=== PATIENT | female | born 1965 | race Caucasian/White ===

== ENCOUNTER 2017-07-19 09:44 | Emergency (ER) | payer OTHER ==
[2017-07-19] MEDS ORDERED: Acetaminophen TAB* 325 MG PO ONE (10:40)
[2017-07-19] MEDS ORDERED: Lisinopril TAB* 10 MG PO ONE (10:45)
[2017-07-19 11:05] LABS: Hematocrit 39 % (35-47); Hemoglobin 12.6 g/dl (12.0-16.0); Mean Corpuscular HGB Conc 33 g/dl (31-36); Mean Corpuscular Hemoglobin 28 pg (27-31); Mean Corpuscular Volume 86 fL (80-97); Mean Platelet Volume 7 um3 (7.4-10.4); Red Cell Distribution Width 15 % (10.5-15); White Blood Count 9.8 10^3/ul (3.5-10.8)
--- NOTE | 2017-07-19 11:09 | RAD ---
Indication: The headache post fall 2 weeks ago. Hypertension. Comparison: November 10, 2014 CT. Technique: Upright AP 1050 hours Report: Clear lungs and pleural spaces. Negative for pneumothorax. Upper normal heart size accounting for portable AP technique. Unremarkable central pulmonary vasculature and mediastinal contours. Unremarkable osseous structures and soft tissue contours. IMPRESSION: No evidence for acute intrathoracic disease.
[2017-07-19 11:22] LABS: Albumin 4.3 g/dL (3.2-5.2); BUN/Creatinine Ratio 12.1 (8-20); C Reactive Protein 6.73 mg/L (< 5.00); Calcium 9.8 mg/dL (8.6-10.3); EGFR African American 121.4 (>60); EGFR Non-African American 94.4 (>60); Potassium 3.5 mmol/L (3.5-5.0); Total Bilirubin 0.3 mg/dL (0.2-1.0); Total Protein 7.3 g/dL (6.4-8.9)
[2017-07-19 11:24] LABS: Troponin I 0.01 ng/mL (<0.04)
--- NOTE | 2017-07-19 11:36 | RAD ---
Indication: Headache after fall. CT of the brain was performed without IV contrast. Ventricular structures are midline. No midline shift is noted. The extraction spaces are unremarkable. There is no evidence of intracranial mass or hemorrhage. No other high or low density lesions are identified. Mastoid air cells and paranasal sinuses are otherwise unremarkable. IMPRESSION: No intracranial mass or hemorrhage is noted.
--- NOTE | 2017-07-19 11:49 | RAD ---
Indication: Fall on tailbone. 2 views of the sacrum and coccyx angulated tip of the coccyx which appears to be unchanged from previous exam of April 22, 2015. A displaced coccyx is not excluded. Sacral foramina appear patent. IMPRESSION: The tip of the coccyx appears to be angulated and slightly displaced anteriorly. Fracture or dislocation is not excluded. This is significantly changed since April 12, 2015 CT scan.
[2017-07-19 12:38] VITALS: BP 160/90
--- NOTE | 2017-07-21 02:19 | ED ---
Saba Suazo Nilda, scribed for Annmarie Anguiano MD on 07/19/17 at 1023 . Dizziness - HPI Summary HPI Summary: This patient is a 52 year old F presenting to [facility] accompanied by with a chief complaint of constant severe headache since 07/14/17 that has been worsening progressively. 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 Pt states a child ran in front of her and ran into her causing her to lose her balance and fall. She states that she landed on her coccyx, hit the back of her head (posterior occiput) and had an abrasion on her right elbow. Pt states that she saw stars after the fall and applied ice for relief. The patient rates the pain 7/10 in severity. Pt states she had headache and coccyx pain after the injury, but that all of her symptoms worsened on 07/14/17. Pt denies new injury. Symptoms aggravated by change in head position. Symptoms alleviated by dark rooms and rest. Pt notes that Tylenol does not relieve headache. Patient reports dizziness , photophobia, coccyx pain, shakiness, chest pain, palpitations, confusion, sleep disturbance, nausea, and near syncope secondary to headache. Pt states shes currently on 25 mg of Metroprolol Tartrate BID but only takes it once per day due to fear of side effects. At home, pt states her BP is normally 140/70 when controlled. Lately, home BP has been reading 168/95 with 77 bpm. In ED, BP is currently 170/86. Pt is seeing PCP 08/03/17 to discuss blood pressure medication. She is also on Protonix and Ambien (currently ineffective). NKDA though Demerol causes nausea. Multiple meds with adverse side effects. PMHx includes hypertension, Crohn's disease, Subcutaneous sebaceous cyst, and Adhesive Capsulitis left shoulder. PSHx multiple left shoulder surgeries. 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 - Allergies/Home Medications Allergies/Adverse Reactions: Allergies Allergy/AdvReac Type Severity Reaction Status Date / Time Prednisone Allergy Severe SEVERE Verified 11/07/14 11:36 PALPITATIONS Tramadol AdvReac Intermediate Nausea And Verified 11/07/14 11:36 Vomiting Gabapentin AdvReac Nausea Verified 11/07/14 11:36 ADHESIVE TAPE AND BANDAID, Allergy Intermediate Rash Uncoded 11/07/14 11:36 ENVIRONMENTAL/SEASONAL Allergy SNEEZE, Uncoded 11/07/14 11:36 HAYFEVER CONGESTION Opiates AdvReac Mild Nausea And Uncoded 11/07/14 11:36 Vomiting, MORE OF A SENSITIVITY,CAN TAKE PERCOCET PMH/Surg Hx/FS Hx/Imm Hx Previously Healthy: No Endocrine/Hematology History: Reports: Hx Anemia - R/T HEAVY PERIODS AND CROHN'S Denies: Hx Diabetes Cardiovascular History: Reports: Hx Hypertension - ON MEDS Denies: Hx Congestive Heart Failure, Hx Pacemaker/ICD, Other Cardiovascular Problems/Disorders Respiratory History: Reports: Hx Chronic Bronchitis, Hx Pneumonia, Hx Seasonal Allergies Denies: Hx Asthma, Other Respiratory Problems/Disorders GI History: Reports: Hx Crohn's Disease, Hx Gastroesophageal Reflux Disease - ACID REFLUX - CONTROL WITH MEDS, Hx Hiatal Hernia, Hx Ulcer - BLEEDING ULCERS History: Reports: Hx Kidney Stones - PASSED - 1998, Other Problems/ Disorders - HX OF UTI Denies: Hx Dialysis, Hx Renal Disease Musculoskeletal History: Reports: Other Musculoskeletal History - LEFT SHOULDER PAIN FROM INJURY; adhesive capsulitis Sensory History: Reports: Hx Contacts or Glasses - CONTACTS, WILL WEAR GLASSES DAY OF SURGERY Denies: Hx Hearing Aid Opthamlomology History: Reports: Hx Contacts or Glasses - CONTACTS, WILL WEAR GLASSES DAY OF SURGERY Neurological History: Reports: Hx Migraine - OCCASIONAL Denies: Other Neuro Impairments/Disorders Psychiatric History: Reports: Hx Anxiety - ON MEDS, Hx Depression Denies: Hx Panic Disorder - Cancer History Cancer Type, Location and Year: BASAL CELL FROM LT SH AND RT VOODOO - Surgical History Surgery Procedure, Year, and Place: 05/11/13, LEFT SHOULDER , [facility] [place] 11/2013 Left Shoulder Surgery Hx Anesthesia Reactions: No Infectious Disease History: No Infectious Disease History: Reports: Hx Shingles Denies: Traveled Outside the [place] in Last 30 Days - Family History Known Family History: Positive: Cardiac Disease - [place], Other - CVA - Social History Occupation: Employed Part-time - after school program, injury to head and coccyx occurred at work , Disabled Lives: With Family Alcohol Use: Rare Substance Use Type: Reports: None Smoking Status (MU): Never Smoked Tobacco Have You Smoked in the Last Year: No Review of Systems Positive: Other - mechanical fall at work Positive: Photophobia Positive: Palpitations, Chest Pain Positive: Nausea Positive: Other - tailbone pain, chronic left shoulder pain (due to Adhesive Capsulitis) Neurological: Other - dizziness, shakiness, confusion, sleep distubance Positive: Headache, Syncope - near Psychological: Normal All Other Systems Reviewed And Are Negative: Yes Physical Exam Triage Information Reviewed: Yes Vital Signs On Initial Exam: Initial Vitals Temp Pulse Resp BP Pulse Ox 98.6 F 75 18 173/96 98 07/19/17 09:47 07/19/17 09:47 07/19/17 09:47 07/19/17 09:47 07/19/17 09:47 Vital Signs Reviewed: Yes Appearance: Positive: Well-Appearing, Well-Nourished, Pain Distress Skin: Positive: Warm, Skin Color Reflects Adequate Perfusion, Other - no ecchymosis Head/Face: Positive: Normal Head/Face Inspection, Cephalohematoma - post occiput , Other - "bia" left occiput (chronic per pt), probable sebaceous cyst Eyes: Positive: EOMI, CASSIDY, Conjunctiva Clear ENT: Positive: Normal ENT inspection, TMs normal Neck: Positive: Supple, Nontender, No Lymphadenopathy Respiratory/Lung Sounds: Positive: Clear to Auscultation, Breath Sounds Present , Other - negative respiratory distress Cardiovascular: Positive: Other - pulses normal, brisk capillary refill, S1, S2. Negative: Murmur Abdomen Description: Positive: Nontender, No Organomegaly, Soft. Negative: Bruit, CVA Tenderness (R), CVA Tenderness (L), Distended, Guarding, Hernia @, Hepatomegaly, McBurney's Point Tenderness, Peritoneal Signs, Pulsatile Mass, Splenomegaly Bowel Sounds: Positive: Present Musculoskeletal: Positive: Other - Pulses intact, no calf tenderness, tender at coccyx w.o bruising Neurological: Positive: Sensory/Motor Intact, Alert, Oriented to Person Place, Time, CN Intact II-III, Reflexes Intact - 2+ and symmetric, Heel to Toe - normal , Facial Symmetry, Speech Normal, Other - muscle tone normal, CN II-XII intact, motor function 5/5, sensations intact, Gait WNL, heel to azar normal. Negative : Facial Droop Psychiatric: Positive: Normal - Ava Coma Scale Best Eye Response: 4 - Spontaneous Best Motor Response: 6 - Obeys Commands Best Verbal Response: 5 - Oriented Diagnostics - Vital Signs Vital Signs Temp Pulse Resp BP Pulse Ox 07/19/17 09:47 98.6 F 75 18 173/96 98 - Laboratory Lab Results: Lab Results 07/19/17 07/19/17 07/19/17 Range/Units 10:55 10:55 10:55 WBC 9.8 (3.5-10.8) 10^3/ul RBC 4.50 (4.0-5.4) 10^6/ul Hgb 12.6 (12.0-16.0) g/dl Hct 39 (35-47) % MCV 86 (80-97) fL MCH 28 (27-31) pg MCHC 33 (31-36) g/dl RDW 15 (10.5-15) % Plt Count 429 (150-450) 10^3/ul MPV 7 L (7.4-10.4) um3 Neut % (Auto) 81.1 (38-83) % Lymph % (Auto) 12.8 L (25-47) % Gaines % (Auto) 4.8 (1-9) % Eos % (Auto) 0.9 (0-6) % Baso % (Auto) 0.4 (0-2) % Absolute Neuts (auto) 7.9 H (1.5-7.7) 10^3/ul Absolute Lymphs (auto) 1.3 (1.0-4.8) 10^3/ul Absolute Monos (auto) 0.5 (0-0.8) 10^3/ul Absolute Eos (auto) 0.1 (0-0.6) 10^3/ul Absolute Basos (auto) 0 (0-0.2) 10^3/ul Absolute Nucleated RBC 0 10^3/ul Nucleated RBC % 0 INR (Anticoag Therapy) 1.00 (0.89-1.11) Sodium 139 (133-145) mmol/L Potassium 3.5 (3.5-5.0) mmol/L Chloride 105 (101-111) mmol/L Carbon Dioxide 28 (22-32) mmol/L Anion Gap 6 (2-11) mmol/L BUN 8 (6-24) mg/dL Creatinine 0.66 (0.51-0.95) mg/dL Est GFR ( Amer) 121.4 (>60) Est GFR (Non-Af Amer) 94.4 (>60) BUN/Creatinine Ratio 12.1 (8-20) Glucose 123 H (70-100) mg/dL Lactic Acid (0.5-2.0) mmol/L Calcium 9.8 (8.6-10.3) mg/dL Total Bilirubin 0.30 (0.2-1.0) mg/dL AST 12 L (13-39) U/L ALT 9 (7-52) U/L Alkaline Phosphatase 84 (34-104) U/L Total Creatine Kinase 59 (10-223) U/L CK-MB (CK-2) 1.3 (0.6-6.3) ng/mL Troponin I 0.01 (<0.04) ng/mL C-Reactive Protein 6.73 H (< 5.00) mg/L Total Protein 7.3 (6.4-8.9) g/dL Albumin 4.3 (3.2-5.2) g/dL Globulin 3.0 (2-4) g/dL Albumin/Globulin Ratio 1.4 (1-3) 07/19/17 Range/Units 10:55 WBC (3.5-10.8) 10^3/ul RBC (4.0-5.4) 10^6/ul Hgb (12.0-16.0) g/dl Hct (35-47) % MCV (80-97) fL MCH (27-31) pg MCHC (31-36) g/dl RDW (10.5-15) % Plt Count (150-450) 10^3/ul MPV (7.4-10.4) um3 Neut % (Auto) (38-83) % Lymph % (Auto) (25-47) % Gaines % (Auto) (1-9) % Eos % (Auto) (0-6) % Baso % (Auto) (0-2) % Absolute Neuts (auto) (1.5-7.7) 10^3/ul Absolute Lymphs (auto) (1.0-4.8) 10^3/ul Absolute Monos (auto) (0-0.8) 10^3/ul Absolute Eos (auto) (0-0.6) 10^3/ul Absolute Basos (auto) (0-0.2) 10^3/ul Absolute Nucleated RBC 10^3/ul Nucleated RBC % INR (Anticoag Therapy) (0.89-1.11) Sodium (133-145) mmol/L Potassium (3.5-5.0) mmol/L Chloride (101-111) mmol/L Carbon Dioxide (22-32) mmol/L Anion Gap (2-11) mmol/L BUN (6-24) mg/dL Creatinine (0.51-0.95) mg/dL Est GFR ( Amer) (>60) Est GFR (Non-Af Amer) (>60) BUN/Creatinine Ratio (8-20) Glucose (70-100) mg/dL Lactic Acid 0.9 (0.5-2.0) mmol/L Calcium (8.6-10.3) mg/dL Total Bilirubin (0.2-1.0) mg/dL AST (13-39) U/L ALT (7-52) U/L Alkaline Phosphatase (34-104) U/L Total Creatine Kinase (10-223) U/L CK-MB (CK-2) (0.6-6.3) ng/mL Troponin I (<0.04) ng/mL C-Reactive Protein (< 5.00) mg/L Total Protein (6.4-8.9) g/dL Albumin (3.2-5.2) g/dL Globulin (2-4) g/dL Albumin/Globulin Ratio (1-3) Result Diagrams: 07/19/17 10:55 07/19/17 10:55 Lab Statement: Any lab studies that have been ordered have been reviewed, and results considered in the medical decision making process. - Radiology CXR Radiology Interpretation Completed By: Radiologist - no evidence for intrathoracic disease. ED physician has reviewed this radiology report and agrees. Coccyx XR Radiology Interpretation Completed By: Radiologist - reveals the tip of the coccyx appears to be angulated and slightly displaced anteriorly. Fracture or dislocation is not excluded. This is significantly changed since April 12, 2015 CT scan. ED physician has reviewed this radiology report and agrees. - CT Brain CT Interpretation Completed By: Radiologist - CT brain, per radiologist, reveals no intracranial mass or hemorrhage is noted.ED physician has reviewed this radiology report and agrees. - EKG 1055 Cardiac Rate: NL EKG Rhythm: Sinus Rhythm - [address] Segment: Non-Specific Ectopy: None EKG Interpretation: nl AV, IV, CT, nl QTC, nl axis. EKG Comparison: No Significant Change - from 10/19/14 EKG Re-Evaluation - Re-Evaluation First Eval Re-Evaluation Time: 12:35 Change: Improved Comment: BP 160/96, pulse 74 bpm. Pt reports diminished headache but it's still present. She states she is agreeable to discharge. Dizzy Course/Dx - Course Assessment/Plan: his patient is a 52 year old F with a chief complaint of constant severe headache and coccyx pain since 07/14/17. On 07/06/17, pt had a mechanical fall at work, landing on her coccyx and hitting the back of her head (posterior occiput). Medications and allergies reviewed this visit. Pending Labs, CXR, CT Brain, Coccyx XR, and EKG. An EKG reveals NSR, 68bpm, Normal AV IV CT, norml QTC, nl axis, nonspecific ST changes, no ectopy, no STEMI. Prior no significant change. CXR, per radiologist, reveals no evidence for intrathoracic disease. CT brain, per radiologist, reveals no intracranial mass or hemorrhage is noted. Coccyx XR, per radiologist, reveals the tip of the coccyx appears to be angulated and slightly displaced anteriorly. Fracture or dislocation is not excluded. This is significantly changed since April 12, 2015 CT scan. ED physician has reviewed these radiology reports and agrees. Pt is stable and will be D/C with a follow up with Dr. Salmeron and Dr. Zandra Mendoza (for concussion mgt). Dx conccussion, fractured coccyx, and hypertension in poor control. Pt is given work release until she can be re- evaluated by her PCP. All of patient's current symptoms are reasonably attributable to the mechanical fall and injury at work on 07/06/17, with concussion and pain after the fall causing the further cascade of symptoms including HTN in poor control. Pt had no further trauma after the fall on , that would have contributed to her current symptoms. - Diagnoses Differential Diagnosis/HQI/PQRI: Benign Paroxysmal Positional Vertigo, CVA, Labyrinthitis, Metabolic Abnormality, Transient Ischemic Attack, Other - concussion Provider Diagnoses: Concussion, Fractured coccyx, Hypertension, poor control Discharge - Discharge Plan Condition: Stable Disposition: HOME Prescriptions: Lisinopril TAB* [Prinivil TAB 10 MG*] 10 mg PO DAILY #30 tab Patient Education Materials: Coccyx Injury (ED), Concussion (ED), Chronic Hypertension (ED), Hypertension (ED) Forms: *Work Release Referrals: Zandra Mendoza MD [Medical Doctor] - 2 Days Lia Salmeron MD [Primary Care Provider] - (as scheduled on Jul) Additional Instructions: We gave you acetaminophen 650mg at 11:30am today. Dr. Anguiano advises that you should take acetaminophen 1 gram, 4 times a day (every 6 hrs, or breakfast, lunch, dinner and bedtime) around the clock for pain up to 4 grams maximum per day. We also gave you Lisinopril 10mg at 11:30am, and have advised you to continue your metoprolol twice a day as directed. Hold the metoprolol if your pulse is less than 60. Also add Lisinopril 10mg daily for treatment of hypertension. Follow up with Dr. Salmeron as scheduled, sooner if you are able. RETURN TO THE EMERGENCY DEPARTMENT FOR CHANGING OR WORSENING SYMPTOMS. The documentation as recorded by the Saba mcdowell Nilda accurately reflects the service I personally performed and the decisions made by , Annmarie Anguiano MD.
== END 2017-07-19 13:07 | disposition home or self-care (01) ==
LOC: ED 09:44
DX: S06.0X9A Concussion with loss of consciousness of unspecified duration, initial encounter (principal); S32.2XXA Fracture of coccyx, initial encounter for closed fracture; I10 Essential (primary) hypertension; F41.9 Anxiety disorder, unspecified; F32.9 Major depressive disorder, single episode, unspecified; W20.8XXA Other cause of strike by thrown, projected or falling object, initial encounter; Y93.9 Activity, unspecified; Y92.219 Unspecified school as the place of occurrence of the external cause
CPT/HCPCS: 36415; 70450; 71010; 72220; 80053; 82550; 82553; 83605; 84484; 85025; 85610; 86140; 93005; 99282; A9270-GY

== ENCOUNTER 2017-11-02 19:39 | Inpatient (IN) | payer MEDICARE, OTHER ==
[2017-11-02 20:40] LABS: ABS Basophils 0 10^3/ul (0-0.2); ABS Eosinophils 0.2 10^3/ul (0-0.6); ABS Lymphocytes 1.7 10^3/ul (1.0-4.8); ABS Monocytes 0.5 10^3/ul (0-0.8); ABS Nucleated RBC 0 10^3/ul; Eosinophil % 1.7 % (0-6); Hematocrit 36 % (35-47); Lymphocyte % 18.3 % (25-47); Mean Corpuscular HGB Conc 33 g/dl (31-36); Mean Corpuscular Hemoglobin 28 pg (27-31); Mean Corpuscular Volume 86 fL (80-97); Mean Platelet Volume 7 um3 (7.4-10.4); Nucleated Red Blood Cells % 0; Platelet Count 390 10^3/ul (150-450); Red Blood Count 4.22 10^6/ul (4.0-5.4); Red Cell Distribution Width 15 % (10.5-15); White Blood Count 9.4 10^3/ul (3.5-10.8)
[2017-11-02 21:11] LABS: EGFR Non-African American 94.4 (>60)
[2017-11-03] MEDS ORDERED: Acetaminophen TAB* 325 MG ONE (00:34)
[2017-11-03] MEDS ORDERED: Al Hydrox/Mg Hydrox/Simet LIQ* 30 ML UDC PO PRN (00:35)
[2017-11-03] MEDS ORDERED: traMADol TAB* 50 MG PO PRN (00:35)
[2017-11-03] MEDS ORDERED: Acetaminophen TAB* 325 MG PO PRN (00:35)
[2017-11-03] MEDS ORDERED: Cyclobenzaprine TAB* 10 MG PO PRN (00:37)
[2017-11-03] MEDS: Vitamin THERAPEUTIC TAB PO SCH (08:34)
[2017-11-03] MEDS: Metoprolol Succinate XL TAB* 25 MG PO SCH (08:34)
[2017-11-03] MEDS: Omeprazole CAP* 20 MG PO SCH (08:34)
[2017-11-03] MEDS ORDERED: LORazepam TAB(*) 1 MG PO ONE (11:43)
[2017-11-03] MEDS: Gabapentin CAP(*) 100 MG PO SCH ×2 (14:02→22:42)
[2017-11-03] MEDS: FLUoxetine CAP* 10 MG PO SCH (14:02)
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
[2017-11-03] MEDS: Zolpidem TAB* 10 MG PO PRN (22:28)
[2017-11-04] MEDS: FLUoxetine CAP* 10 MG PO SCH (08:52)
[2017-11-04] MEDS: Omeprazole CAP* 20 MG PO SCH (08:54)
[2017-11-04] MEDS: Vitamin THERAPEUTIC TAB PO SCH (08:54)
[2017-11-04] MEDS: Metoprolol Succinate XL TAB* 25 MG PO SCH (08:54)
[2017-11-04] MEDS: Gabapentin CAP(*) 100 MG PO SCH ×3 (09:12→22:09)
--- NOTE | 2017-11-04 11:54 | PN ---
MHU: Group Therapy Note - Service Type Service Type: 48278 Group Psychotherapy - Cognitive Behavioral Group Therapy ( CBT):Patient was attentive and participatory in CBT programming this morning, and remained in good behavioral control. Patient expressed positive insights regarding relevant treatment interventions and goals. Cherelle related to discussion of borderline traits at various points in discussion, describing recent dissociative experience while attending . She relates relevent experience in a topical and insightful fashion.
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
[2017-11-04] MEDS: Zolpidem TAB* 10 MG PO PRN (22:10)
[2017-11-05] MEDS: Metoprolol Succinate XL TAB* 25 MG PO SCH (07:59)
[2017-11-05] MEDS: FLUoxetine CAP* 10 MG PO SCH (07:59)
[2017-11-05] MEDS: Omeprazole CAP* 20 MG PO SCH (07:59)
[2017-11-05] MEDS: Gabapentin CAP(*) 100 MG PO SCH (07:59)
[2017-11-05] MEDS: Vitamin THERAPEUTIC TAB PO SCH (07:59)
[2017-11-05] MEDS ORDERED: LORazepam TAB(*) 1 MG PO ONE (10:32)
--- NOTE | 2017-11-05 11:54 | PN ---
MHU: Group Therapy Note - Service Type Service Type: 95415 Group Psychotherapy - Cognitive Behavioral Group Therapy ( CBT):Patient was attentive and participatory in CBT programming this morning, and remained in good behavioral control. Patient expressed positive insights regarding relevant treatment interventions and goals.
[2017-11-05] MEDS ORDERED: Gabapentin CAP(*) 300 MG PO PRN (16:19)
[2017-11-05] MEDS ORDERED: LORazepam TAB(*) 1 MG PO PRN (16:21)
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
[2017-11-05] MEDS ORDERED: Prazosin CAP* 1 MG PO SCH (21:00)
[2017-11-05] MEDS: Gabapentin CAP(*) 300 MG PO SCH (21:32)
[2017-11-05] MEDS ORDERED: cloNIDine TAB* 0.1 MG ONE (22:39)
[2017-11-05] MEDS ORDERED: cloNIDine TAB* 0.1 MG PO ONE (23:00)
[2017-11-06] MEDS: Omeprazole CAP* 20 MG PO SCH (08:32)
[2017-11-06] MEDS: Gabapentin CAP(*) 300 MG PO SCH ×2 (08:32→21:02)
[2017-11-06] MEDS: FLUoxetine CAP* 20 MG PO SCH (08:32)
[2017-11-06] MEDS: Vitamin THERAPEUTIC TAB PO SCH (08:32)
[2017-11-06] MEDS: Metoprolol Succinate XL TAB* 25 MG PO SCH ×2 (08:32→21:02)
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
[2017-11-06] MEDS: Zolpidem TAB* 10 MG PO PRN (22:28)
[2017-11-07] MEDS: FLUoxetine CAP* 20 MG PO SCH (08:21)
[2017-11-07] MEDS: Metoprolol Succinate XL TAB* 25 MG PO SCH ×2 (08:21→20:39)
[2017-11-07] MEDS: Gabapentin CAP(*) 300 MG PO SCH ×2 (08:21→20:39)
[2017-11-07] MEDS: Omeprazole CAP* 20 MG PO SCH (08:21)
[2017-11-07] MEDS: Vitamin THERAPEUTIC TAB PO SCH (08:22)
[2017-11-08 08:04] VITALS: BP 146/76
[2017-11-08] MEDS: Gabapentin CAP(*) 300 MG PO SCH (08:04)
[2017-11-08] MEDS: Metoprolol Succinate XL TAB* 25 MG PO SCH (08:04)
[2017-11-08] MEDS: Omeprazole CAP* 20 MG PO SCH (08:05)
[2017-11-08] MEDS: Vitamin THERAPEUTIC TAB PO SCH (08:05)
[2017-11-08] MEDS: FLUoxetine CAP* 20 MG PO SCH (08:05)
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
== END 2017-11-08 14:33 | disposition home or self-care (01) | DRG 882 ==
LOC: ED 19:39 → BSU 11-03 01:03
PROVIDERS: ADMIT Psychiatry & Neurology Psychiatry; ATTEND Psychiatry & Neurology Psychiatry
DX: F43.12 Post-traumatic stress disorder, chronic (principal); R45.851 Suicidal ideations; I10 Essential (primary) hypertension; K21.9 Gastro-esophageal reflux disease without esophagitis; Z88.8 Allergy status to other drugs, medicaments and biological substances; Z79.899 Other long term (current) drug therapy; Z81.1 Family history of alcohol abuse and dependence; Z81.8 Family history of other mental and behavioral disorders
CPT/HCPCS: 36415; 80053; 80307; 80320; 80329; 84443; 85025; 87086; 90853; 99222; 99231; 99232; 99285; A9270-GY; G0480

== ENCOUNTER 2017-11-10 10:20 | Emergency (ER) | payer MEDICARE ==
[2017-11-10 11:46] LABS: ABS Basophils 0.1 10^3/ul (0-0.2); ABS Eosinophils 0.1 10^3/ul (0-0.6); ABS Monocytes 0.6 10^3/ul (0-0.8); ABS Neutrophils 7.3 10^3/ul (1.5-7.7); ABS Nucleated RBC 0 10^3/ul; Eosinophil % 1.1 % (0-6); Hematocrit 38 % (35-47); Hemoglobin 12.4 g/dl (12.0-16.0); Lymphocyte % 20.1 % (25-47); Mean Corpuscular HGB Conc 33 g/dl (31-36); Mean Corpuscular Hemoglobin 28 pg (27-31); Mean Corpuscular Volume 86 fL (80-97); Mean Platelet Volume 7.3 um3 (7.4-10.4); Nucleated Red Blood Cells % 0; Platelet Count 459 10^3/ul (150-450); Red Blood Count 4.38 10^6/ul (4.0-5.4); Red Cell Distribution Width 15 % (10.5-15); White Blood Count 10.2 10^3/ul (3.5-10.8)
--- NOTE | 2017-11-10 11:51 | RAD ---
Indication: RIGHT facial numbness. Comparison: July 19, 2017 Technique: Noncontrast CT vertex of skull through foramen magnum. Report: The sulci, ventricles, and basal cisterns are normal for age. Pink matter white matter differentiation is preserved without evidence for edema. No intra or extra axial hemorrhage, mass, or fluid collection detected. Unremarkable visualized orbital contents. Unchanged indolent appearing exostosis at the outer table of the LEFT occipital bone. No suspicious focal calvarial or skull base lesions evident. Unremarkable scalp. The visualized paranasal sinuses and mastoid air spaces are clear. IMPRESSION: No acute intracranial process evident. Negative exam.
[2017-11-10 12:06] LABS: EGFR Non-African American 92.8 (>60)
[2017-11-10 16:11] VITALS: BP 164/97
--- NOTE | 2017-11-10 18:30 | ED ---
Jaya Suazo Julia, scribed for Matt Tee MD on 11/10/17 at 1053 . Complex/Multi-Sys Presentation - HPI Summary HPI Summary: This patient is a 52 year old F presenting to [facility] accompanied by her parents with a chief complaint of right sided facial numbness and bilateral hand numbness and tingling beginning today. Patient describes the facial numbness as a Novocain injection from the dentist. She reports numbness of her entire body occurring yesterday, that resolved prior to todays symptoms. She reports that she just started new medication for PTSD and borderline personality disorder on 11/03/17. She states she was hospitalized and diagnosed prior to starting new medication, Gabapentin. - History Of Current Complaint Chief Complaint: EDAllergicReaction Time Seen by Provider: 11/10/17 10:41 Hx Obtained From: Patient Onset/Duration: Sudden Onset, Lasting Hours Timing: Constant Location: Pain At: - numbness of right face, bilateral tingling of the hands Related History: Recent Hospitalization - Allergies/Home Medications Allergies/Adverse Reactions: Allergies Allergy/AdvReac Type Severity Reaction Status Date / Time ADHESIVE TAPE AND BANDAID, Allergy Intermediate Rash Uncoded 11/10/17 10:44 ENVIRONMENTAL/SEASONAL Allergy SNEEZE, Uncoded 11/10/17 10:44 HAYFEVER CONGESTION Home Medications: Home Medications Cyclobenzaprine TAB* [Flexeril 10 MG TAB*] 10 mg PO DAILY 11/10/17 [History Confirmed 11/10/17] Pantoprazole TAB (NF) [Protonix TAB (NF)] 20 mg PO DAILY 11/10/17 [History Confirmed 11/10/17] PMH/Surg Hx/FS Hx/Imm Hx Endocrine/Hematology History: Reports: Hx Anemia - R/T HEAVY PERIODS AND CROHN'S Denies: Hx Diabetes, Hx Unexplained Bleeding Cardiovascular History: Reports: Hx Hypertension - ON MEDS Denies: Hx Cardiac Arrest, Hx Congestive Heart Failure, Hx Pacemaker/ICD, Other Cardiovascular Problems/Disorders Respiratory History: Reports: Hx Chronic Bronchitis, Hx Pneumonia, Hx Seasonal Allergies Denies: Hx Asthma, Other Respiratory Problems/Disorders GI History: Reports: Hx Crohn's Disease - since 2012, Hx Gastroesophageal Reflux Disease - ACID REFLUX, Hx Hiatal Hernia, Hx Irritable Bowel - NO MEDS, Hx Ulcer - Bleeding ulcers, required transfusion couple of years ago History: Reports: Hx Kidney Stones, Other Problems/Disorders - HX OF UTI Denies: Hx Dialysis, Hx Renal Disease Musculoskeletal History: Reports: Hx Arthritis - L shoulder and neck, Other Musculoskeletal History - LEFT SHOULDER PAIN FROM INJURY; adhesive capsulitis Sensory History: Reports: Hx Contacts or Glasses Denies: Hx Hearing Aid Opthamlomology History: Reports: Hx Contacts or Glasses Neurological History: Reports: Hx Headaches, Hx Migraine - OCCASIONAL, Other Neuro Impairments/Disorders - Parosyxmal Hemicrania Denies: Hx Seizures, Hx Spinal Cord Injury Psychiatric History: Reports: Hx Anxiety, Hx Depression, Hx Post Traumatic Stress Disorder, Hx Community Mental Health Tx Denies: Hx Eating Disorder, Hx Panic Disorder, Hx of Violent Episodes Against Others - Cancer History Cancer Type, Location and Year: BASAL CELL FROM LT SH AND RT LATTER-DAY. (pt did not report this during most recent assessment) - Surgical History Surgery Procedure, Year, and Place: 05/11/13, LEFT SHOULDER , [facility] 11/2013 Left Shoulder Surgery Hx Anesthesia Reactions: No - Immunization History Immunizations Up to Date: Yes Infectious Disease History: Yes Infectious Disease History: Reports: Hx Shingles Denies: Traveled Outside the [place] in Last 30 Days - Family History Known Family History: Positive: Cardiac Disease - MD, Other - CVA - Social History Alcohol Use: None Substance Use Type: Reports: None Smoking Status (MU): Never Smoked Tobacco Have You Smoked in the Last Year: No Review of Systems Negative: Fever Neurological: Other - tingling hands Positive: Numbness - right face, hands All Other Systems Reviewed And Are Negative: Yes Physical Exam - Summary Physical Exam Summary: Appearance: The patient is well-nourished in no acute distress and in no acute pain. Skin: The skin is warm and dry and skin color reflects adequate perfusion. HEENT: The head is normocephalic and atraumatic. The pupils are equal and reactive. The conjunctivae are clear and without drainage. Nares are patent and without drainage. Mouth reveals moist mucous membranes and the throat is without erythema and exudate. The external ears are intact. The ear canals are patent and without drainage. The tympanic membranes are intact. Neck: the neck is supple with full range of motion and non-tender. There are no carotid bruits. There is no neck vein distension. Respiratory: Chest is non-tender. Lungs are clear to auscultation and breath sounds are symmetrical and equal. Cardiovascular: Heart is regular rate and rhythm. There is no murmur or rub auscultated. There is no peripheral edema and pulses are symmetrical and equal. Abdomen: The abdomen is soft and non-tender. There are normal bowel sounds heard in all four quadrants and there is no organomegaly palpated. Musculoskeletal: There is no back tenderness noted. Extremities are non-tender with full range of motion. There is good capillary refill. There is no peripheral edema or calf tenderness elicited. Neurological: Patient is alert and oriented to person, place and time. The patient has symmetrical motor strength in all four extremities. Cranial nerves are grossly intact. Deep tendon reflexes are symmetrical and equal in all four extremities. Psychiatric: The patient has an appropriate affect and does not exhibit any anxiety or depression. Triage Information Reviewed: Yes Vital Signs On Initial Exam: Initial Vitals Temp Pulse Resp BP Pulse Ox 97.9 F 58 18 177/78 100 11/10/17 10:23 11/10/17 10:23 11/10/17 10:23 11/10/17 10:23 11/10/17 10:23 Vital Signs Reviewed: Yes Diagnostics - Vital Signs Vital Signs Temp Pulse Resp BP Pulse Ox 11/10/17 10:23 97.9 F 58 18 177/78 100 - Laboratory Lab Results: Lab Results 11/10/17 11/10/17 11/10/17 Range/Units 11:32 11:32 11:32 WBC 10.2 (3.5-10.8) 10^3/ul RBC 4.38 (4.0-5.4) 10^6/ul Hgb 12.4 (12.0-16.0) g/dl Hct 38 (35-47) % MCV 86 (80-97) fL MCH 28 (27-31) pg MCHC 33 (31-36) g/dl RDW 15 (10.5-15) % Plt Count 459 H D (150-450) 10^3/ul MPV 7.3 L (7.4-10.4) um3 Neut % (Auto) 72.2 (38-83) % Lymph % (Auto) 20.1 L (25-47) % [place] % (Auto) 6.0 (0-7) % Eos % (Auto) 1.1 (0-6) % Baso % (Auto) 0.6 (0-2) % Absolute Neuts (auto) 7.3 (1.5-7.7) 10^3/ul Absolute Lymphs (auto) 2.0 (1.0-4.8) 10^3/ul Absolute Monos (auto) 0.6 (0-0.8) 10^3/ul Absolute Eos (auto) 0.1 (0-0.6) 10^3/ul Absolute Basos (auto) 0.1 (0-0.2) 10^3/ul Absolute Nucleated RBC 0 10^3/ul Nucleated RBC % 0 Sodium 137 (133-145) mmol/L Potassium 3.7 (3.5-5.0) mmol/L Chloride 103 (101-111) mmol/L Carbon Dioxide 26 (22-32) mmol/L Anion Gap 8 (2-11) mmol/L BUN 11 (6-24) mg/dL Creatinine 0.67 (0.51-0.95) mg/dL Est GFR ( Amer) 119.3 (>60) Est GFR (Non-Af Amer) 92.8 (>60) BUN/Creatinine Ratio 16.4 (8-20) Glucose 98 (70-100) mg/dL Lactic Acid 0.7 (0.5-2.0) mmol/L Calcium 9.6 (8.6-10.3) mg/dL Total Bilirubin 0.30 (0.2-1.0) mg/dL AST 13 (13-39) U/L ALT 10 (7-52) U/L Alkaline Phosphatase 74 (34-104) U/L Troponin I 0.00 (<0.04) ng/mL Total Protein 7.3 (6.4-8.9) g/dL Albumin 4.4 (3.2-5.2) g/dL Globulin 2.9 (2-4) g/dL Albumin/Globulin Ratio 1.5 (1-3) TSH 1.63 (0.34-5.60) mcIU/mL Result Diagrams: 11/10/17 11:32 03 11:32 Lab Statement: Any lab studies that have been ordered have been reviewed, and results considered in the medical decision making process. - CT Brain CT CT Interpretation Completed By: Radiologist - No acute intracranial process evident. Negative exam. ED Physician has reviewed this report. - EKG 1142 Cardiac Rate: Bradycardia - 54 BPM EKG Rhythm: Sinus Bradycardia EKG Interpretation: non-specific septal changes Re-Evaluation - Re-Evaluation 1 Re-Evaluation Time: 16:00 Comment: Results discussed with patient. Patient will be discharged. Complex Multi-Symp Course/Dx Course Of Treatment: Ms. Elizalde presented with diffuse parasthesias that she attributed to the gabapentin that she was recently started on. She was also started on Zoloft. She has a history of HTN and is 52 and I was concerned that this might represent a CVA. I spoke with Dr. Torres who agreed and recommended an MRI. The patient was unwilling to wait for the test and wanted to go home and not take the gabapentin. I encouraged her to F/U and return for any problems. She is aware of my concerns for CVA and the risks. - Diagnoses Provider Diagnoses: Medication reaction Discharge - Sign-Out/Discharge Documenting (check all that apply): Discharge - Discharge Plan Condition: Stable Disposition: HOME Patient Education Materials: Paresthesia (ED) Forms: *Work Release Referrals: Lia Salmeron MD [Primary Care Provider] - Additional Instructions: [facility]. Discontinue Gapapentin medication. - Billing Disposition and Condition Condition: STABLE Disposition: HOME The documentation as recorded by the Jaya mcdowell Julia accurately reflects the service I personally performed and the decisions made by me, Matt Tee MD.
== END 2017-11-10 16:17 | disposition home or self-care (01) ==
LOC: ED 10:20
DX: T41.3X5A Adverse effect of local anesthetics, initial encounter (principal); R20.0 Anesthesia of skin; Y92.9 Unspecified place or not applicable
CPT/HCPCS: 36415; 70450; 80053; 83605; 84443; 84484; 85025; 93005; 99283

== ENCOUNTER 2018-02-27 07:19 | Observation (INO) | payer MEDICARE ==
[2018-02-27 07:47] LABS: ABS Basophils 0 10^3/ul (0-0.2); ABS Eosinophils 0.2 10^3/ul (0-0.6); ABS Lymphocytes 1.9 10^3/ul (1.0-4.8); ABS Monocytes 0.4 10^3/ul (0-0.8); ABS Neutrophils 3.4 10^3/ul (1.5-7.7); ABS Nucleated RBC 0 10^3/ul; Eosinophil % 4.1 % (0-6); Hematocrit 36 % (35-47); Hemoglobin 11.9 g/dl (12.0-16.0); Lymphocyte % 32.1 % (25-47); Mean Corpuscular HGB Conc 34 g/dl (31-36); Mean Corpuscular Hemoglobin 28 pg (27-31); Mean Corpuscular Volume 84 fL (80-97); Mean Platelet Volume 6.9 um3 (7.4-10.4); Nucleated Red Blood Cells % 0.1; Platelet Count 356 10^3/ul (150-450); Red Blood Count 4.24 10^6/ul (4.00-5.40); Red Cell Distribution Width 14 % (10.5-15); White Blood Count 5.9 10^3/ul (3.5-10.8)
--- NOTE | 2018-02-27 07:48 | RAD ---
INDICATION: Chest pain. COMPARISON: Comparison is made with a prior study from July 19, 2017. TECHNIQUE: A portable view of the chest was obtained. FINDINGS: Cardiac and mediastinal contours appear to be within normal limits. The lungs are clear. No pleural effusion is seen. IMPRESSION: NO EVIDENCE FOR ACUTE DISEASE.
[2018-02-27 07:50] LABS: INR 0.98 (0.77-1.02)
[2018-02-27 07:58] LABS: EGFR Non-African American 92.8 (>60)
[2018-02-27] MEDS ORDERED: NS 0.9% 1000 ML* 2,000 ML IV ONE (08:34)
--- NOTE | 2018-02-27 09:19 | RAD ---
INDICATION: Left facial numbness. COMPARISON: Comparison is made with prior CTs of the brain from January 22, 2012 and November 10, 2017. TECHNIQUE: Contiguous axial sections of the brain were obtained from the skull base to the vertex without contrast. FINDINGS: The ventricles, cisterns and sulci are within normal limits. No significant focal abnormality or mass effect is seen. There is no evidence for hemorrhage. There is a focal area of smooth cortical thickening present arising from the posterior left occipital bone which is unchanged from prior studies. The visualized portion of the paranasal sinuses and mastoid air cells appear clear. IMPRESSION: NO EVIDENCE FOR ACUTE INTRACRANIAL ABNORMALITY.
[2018-02-27] MEDS ORDERED: Acetaminophen TAB* 325 MG PO ONE (10:27)
[2018-02-27] MEDS ORDERED: Metoprolol Succinate XL TAB* 25 MG PO ONE (10:28)
[2018-02-27] MEDS ORDERED: Aspirin 81 mg CHEW TAB* 81 MG TAB.CHEW PO ONE (10:29)
[2018-02-27] MEDS ORDERED: Metoprolol Tartrate TAB* 25 MG ONE (10:50)
[2018-02-27] MEDS ORDERED: Metoprolol Tartrate TAB* 25 MG PO ONE (10:51)
[2018-02-27] MEDS ORDERED: Potassium Chlor TAB* 20 MEQ TAB.ER PO ONE ×2 (11:19→11:44)
[2018-02-27] MEDS ORDERED: Al Hydrox/Mg Hydrox/Simet LIQ* 30 ML UDC PO PRN (12:17)
[2018-02-27] MEDS ORDERED: Ondansetron INJ* 2 MG/ML VIAL IV PRN (12:17)
[2018-02-27] MEDS ORDERED: Acetaminophen TAB* 325 MG PO PRN (12:17)
[2018-02-27] MEDS ORDERED: LORazepam TAB(*) 1 MG PO PRN (12:21)
[2018-02-27] MEDS ORDERED: Cyclobenzaprine TAB* 10 MG PO PRN (12:21)
--- NOTE | 2018-02-27 14:42 | HP ---
CC: Lia Salmeron MD * HISTORY AND PHYSICAL: DATE OF ADMISSION: 02/27/18 TIME OF EVALUATION: 1200. PRIMARY CARE PHYSICIAN: Lia Salmeron MD CHIEF COMPLAINT: Palpitations and chest pain. HISTORY OF PRESENT ILLNESS: This is a 52-year-old female with a past medical history of hypertension, who presented to the emergency room with acute onset of palpitations and chest pain. The patient states she woke up around 6:45 feeling fine, no distress, but 10 minutes later, she noted her heart was racing , having palpitations. She coughed, trying to get out of it, she then developed left-sided chest pain. She went and took a baby aspirin, checked her blood pressure and pulse, which were 140/107 and a heart rate of 181. She then developed chest tightness and shortness of breath and then promptly brought here to the emergency room by her . No nausea. No diaphoresis. The episode lasted for about 10 minutes. She states about 27 years ago, she had a history of tachycardia while she was , but otherwise has no issues with sustained palpitations or heart racing in the past. She has had intermittent palpitations, but nothing to this extent. She has had a stress test many years ago in the past that was unremarkable. She drinks 1 cup of coffee per day. She has had slight weight gain over the past few months as she has been retired and eating more. No dysuria, no abdominal pain, no diarrhea. No URI symptoms. No fevers. No swelling in her lower extremities. Otherwise, review of systems is negative. In addition, the patient has been having issues with headaches, left facial numbness, left hearing loss, and dizziness for the past 3 weeks, she is being worked up by ENT. They are looking into scheduling her an MRI, but it is not scheduled yet. She is also planning to get trigger thumb surgery later this month. In the emergency room, the patient had labs, imaging. She was given 2 L of fluids, 40 mEq of potassium, Lopressor 25 mg, a full aspirin dose, and Tylenol, and referred to the hospitalist service for further evaluation. PAST MEDICAL/SURGICAL HISTORY: 1. History of tachycardia during 27 years ago. 2. Hypertension. 3. PTSD. 4. Panic/anxiety. 5. GERD. 6. History of trigger thumb. 7. As mentioned, getting evaluated for hearing loss and facial numbness by ENT. 8. Also history of 6 shoulder surgeries in the past. 9. Psych admission for suicide ideation. MEDICATIONS: 1. Metoprolol tartrate 25 mg p.o. b.i.d. 2. Ambien 10 mg as needed. 3. Pantoprazole 20 mg daily. 4. Ativan 1 mg as needed. 5. Cyclobenzaprine 10 mg as needed. ALLERGIES: PROZAC, GABAPENTIN, ADHESIVE TAPE, BAND-AID, ENVIRONMENTAL and SEASONAL ALLERGIES, DIURETICS. FAMILY HISTORY: Father is alive at age 96. He has had MIs and stents in the past. Her maternal grandfather had a sudden cardiac arrest in his 50s. Her mother is alive in her 80s. SOCIAL HISTORY: The patient is disabled from her shoulder injury. Rare alcohol use. No smoking or illicit drug use. She lives with her , Melody Elizalde, who is her healthcare proxy. Code status is full code. REVIEW OF SYSTEMS: A 14-point review of systems as mentioned in the HPI, otherwise negative. PHYSICAL EXAMINATION GENERAL: No acute distress, resting comfortably with her at bedside. VITAL SIGNS: Temp is 98.3, pulse rate 78, respiratory rate 17, oxygen saturation 99% on room air, and blood pressure 146/100. HEENT: Head: Normocephalic. Pupils are equal and reactive, anicteric. Oropharynx: Mucous membranes are moist. NECK: Supple. No lymphadenopathy. No carotid bruits. RESPIRATORY: Clear to auscultation. No wheezing, rhonchi, or rales. CARDIAC: Regular rate and rhythm. Soft systolic murmur heard throughout. ABDOMEN: Soft, nontender, nondistended. EXTREMITIES: No clubbing, cyanosis, or edema. +2 DPs. NEUROLOGICAL: Alert and oriented x3. No gross focal neurologic deficits. DIAGNOSTIC STUDIES/LAB DATA: White count 5.9, hemoglobin 11.9, hematocrit 36, platelets 356. INR 0.98. Sodium 142, potassium 3.5, chloride 108, bicarb 28, BUN 12, creatinine 0.67. Troponin initial was 0, repeat was 0.09. Radiographic data: Head CT: No evidence for acute intracranial abnormality. Chest x-ray: No evidence for acute disease. EKG shows normal sinus rhythm with some mild ST depression in the lateral leads. ASSESSMENT AND PLAN: This is a 52-year-old female with past medical history of hypertension, who presents to the emergency room with palpitations and subsequently chest pain with a bump in her troponin. Palpitations and chest pain. Assessment: I suspect the chest pain was a result of her palpitations as well as a bump in her troponin. She is currently chest pain-free without any palpitations. At minimum, the patient warrants a nuclear stress test. There is also concern for workup for her numbness, hearing loss, and dizziness, possibility of an MRI needed per ENT. Plan: We will admit her for observation. Continue to trend her troponin. Check her lipid panel in the morning. Continue her on the baby aspirin. Order a nuclear stress test in the morning. Keep her on the monitor to evaluate for any further episodes of tachycardia. Her potassium has been repleted. We will check it again in the morning. Patient would benefit from outpatient cardiology for possible event monitor. I would recommend following up with ENT in the morning discussing the urgency for getting an MRI as an inpatient while she is here or as outpatient is warranted. There is no ENT coverage at this time. CHRONIC MEDICAL PROBLEMS: 1. Hypertension. Continue her metoprolol. 2. GERD. Continue her pantoprazole. 3. Anxiety. Continue her Ambien, Ativan as needed. 4. FEN: Heart healthy, n.p.o. after midnight. 5. DVT prophylaxis: The patient scores a low risk. We will encourage ambulation. 6. Code status: Full code. PATIENT TIME: Greater than 45 minutes was spent doing history and physical, more than half the time was spent in direct patient contact. [id number]/[facility] #: [id number] CORIN
--- NOTE | 2018-02-27 15:56 | ED ---
Livier Suazo Simon, scribed for Eran Myers MD on 02/27/18 at 0813 . Palpitations / Dysrhythmia - HPI Summary HPI Summary: This patient is a 52 year old F presenting to [facility] accompanied by with a chief complaint of palpitations since 0700. Pt endorses that coughing usually alleviates sx during similar episodes, which only last a few seconds and are less intense, whereas todays episode lasted for 10 minutes. She endorses neck tightness, SOB upon standing, anxiety, lower back pain (resolved), left facial numbness, left-sided hearing loss described as humming and pressure (s/p concussion), WU. Pt denies nausea. Pt took ASA 81 mg at home, which she notes may have alleviated sx. Pt notes her HR at home was 181. PMHx blood clot in arm s/p surgery, concussion, broken tailbone. Additionally, she endorses an episode of hemiparesis, near-syncope, slurred speech 1 month ago in grocery store. PMHx anxiety, HTN, GERD. - History of Current Complaint Chief Complaint: EDChestPainROMI Time Seen by Provider: 02/27/18 07:26 Hx Obtained From: Patient Onset/Duration: Sudden Onset, Lasting Minutes Severity Initially: Moderate Severity Currently: Mild Character: Fast, Pounding Aggravating: Exertion Alleviating: Medication Associated Signs & Symptoms: Shortness of Breath - Allergy/Home Medications Allergies/Adverse Reactions: Allergies Allergy/AdvReac Type Severity Reaction Status Date / Time fluoxetine [From Prozac] Allergy Numbness Verified 02/27/18 07:32 gabapentin Allergy Numbness Verified 02/27/18 07:32 ADHESIVE TAPE AND BANDAID, Allergy Intermediate Rash Uncoded 02/27/18 07:32 ENVIRONMENTAL/SEASONAL Allergy SNEEZE, Uncoded 02/27/18 07:32 HAYFEVER CONGESTION duretics AdvReac Muscle Ache Uncoded 02/27/18 07:32 Home Medications: Home Medications Metoprolol Tartrate TAB* [Lopressor TAB*] 25 mg PO BID 02/27/18 [History Confirmed 02/27/18] PMH/Surg Hx/FS Hx/Imm Hx Endocrine/Hematology History: Reports: Hx Anemia - R/T HEAVY PERIODS AND CROHN'S Denies: Hx Diabetes, Hx Unexplained Bleeding Cardiovascular History: Reports: Hx Hypertension - ON MEDS Denies: Hx Cardiac Arrest, Hx Congestive Heart Failure, Hx Pacemaker/ICD, Other Cardiovascular Problems/Disorders Respiratory History: Reports: Hx Chronic Bronchitis, Hx Pneumonia, Hx Seasonal Allergies Denies: Hx Asthma, Other Respiratory Problems/Disorders GI History: Reports: Hx Crohn's Disease - since 2012, Hx Gastroesophageal Reflux Disease - ACID REFLUX, Hx Hiatal Hernia, Hx Irritable Bowel - NO MEDS, Hx Ulcer - Bleeding ulcers, required transfusion couple of years ago History: Reports: Hx Kidney Stones, Other Problems/Disorders - HX OF UTI Denies: Hx Dialysis, Hx Renal Disease Musculoskeletal History: Reports: Hx Arthritis - L shoulder and neck, Other Musculoskeletal History - LEFT SHOULDER PAIN FROM INJURY; adhesive capsulitis Sensory History: Reports: Hx Contacts or Glasses Denies: Hx Hearing Aid Opthamlomology History: Reports: Hx Contacts or Glasses EENT History: Reports: Hx Hearing Problem Neurological History: Reports: Hx Headaches, Hx Migraine - OCCASIONAL, Other Neuro Impairments/Disorders - Parosyxmal Hemicrania, concussion Denies: Hx Seizures, Hx Spinal Cord Injury Psychiatric History: Reports: Hx Anxiety, Hx Depression, Hx Post Traumatic Stress Disorder, Hx Community Mental Health Tx Denies: Hx Eating Disorder, Hx Panic Disorder, Hx of Violent Episodes Against Others - Cancer History Cancer Type, Location and Year: BASAL CELL FROM LT SH AND RT MUSLIM. (pt did not report this during most recent assessment) - Surgical History Surgery Procedure, Year, and Place: 05/11/13, LEFT SHOULDER , [facility] 11/2013 Left Shoulder Surgery Hx Anesthesia Reactions: No Infectious Disease History: No Infectious Disease History: Reports: Hx Shingles, Traveled Outside the [place] in Last 30 Days - [place] - Family History Known Family History: Positive: Cardiac Disease - [place], Other - CVA - Social History Lives: With Family - Alcohol Use: None Substance Use Type: Reports: None Smoking Status (MU): Never Smoked Tobacco Have You Smoked in the Last Year: No Review of Systems Negative: Fever Positive: Palpitations Positive: Shortness Of Breath Negative: Nausea Positive: Arthralgia - neck Positive: Headache, Numbness - left sided face Positive: Anxious All Other Systems Reviewed And Are Negative: Yes Physical Exam - Summary Physical Exam Summary: General: well-appearing, no pain distress Skin: warm, color reflects adequate perfusion, dry Head: normal Eyes: EOMI, CASSIDY ENT: normal Neck: supple, nontender Respiratory: CTA, breath sounds present Cardiovascular: RRR Abdomen: soft, nontender Bowel: present Musculoskeletal: normal, strength/ROM intact Neurological: motor intact, A&O x3, slightly decreased left-sided facial sensation Psychological: affect/mood appropriate Triage Information Reviewed: Yes Vital Signs On Initial Exam: Initial Vitals Temp Pulse Resp BP Pulse Ox 98.3 F 93 20 157/109 100 02/27/18 07:26 02/27/18 07:26 02/27/18 07:26 02/27/18 07:26 02/27/18 07:26 Vital Signs Reviewed: Yes Diagnostics - Vital Signs Vital Signs Temp Pulse Resp BP Pulse Ox 02/27/18 07:32 95 24 97 02/27/18 07:31 95 17 157/109 99 02/27/18 07:26 98.3 F 93 20 157/109 100 - Laboratory Lab Results: Lab Results 02/27/18 02/27/18 02/27/18 Range/Units 07:32 07:33 07:33 WBC (3.5-10.8) 10^3/ul RBC (4.00-5.40) 10^6/ul Hgb (12.0-16.0) g/dl Hct (35-47) % MCV (80-97) fL MCH (27-31) pg MCHC (31-36) g/dl RDW (10.5-15) % Plt Count (150-450) 10^3/ul MPV (7.4-10.4) um3 Neut % (Auto) (38-83) % Lymph % (Auto) (25-47) % [place] % (Auto) (0-7) % Eos % (Auto) (0-6) % Baso % (Auto) (0-2) % Absolute Neuts (auto) (1.5-7.7) 10^3/ul Absolute Lymphs (auto) (1.0-4.8) 10^3/ul Absolute Monos (auto) (0-0.8) 10^3/ul Absolute Eos (auto) (0-0.6) 10^3/ul Absolute Basos (auto) (0-0.2) 10^3/ul Absolute Nucleated RBC 10^3/ul Nucleated RBC % INR (Anticoag Therapy) 0.98 (0.77-1.02) D-Dimer, Quantitative < 200 (Less Than 230) ng/mL Sodium 142 (135-145) mmol/L Potassium 3.5 (3.5-5.0) mmol/L Chloride 108 (101-111) mmol/L Carbon Dioxide 28 (22-32) mmol/L Anion Gap 6 (2-11) mmol/L BUN 12 (6-24) mg/dL Creatinine 0.67 (0.51-0.95) mg/dL Est GFR ( Amer) 112.3 (>60) Est GFR (Non-Af Amer) 92.8 (>60) BUN/Creatinine Ratio 17.9 (8-20) Glucose 125 H (70-100) mg/dL Lactic Acid 1.7 (0.5-2.0) mmol/L Calcium 9.2 (8.6-10.3) mg/dL Magnesium 2.0 (1.9-2.7) mg/dL Total Bilirubin 0.30 (0.2-1.0) mg/dL AST 13 (13-39) U/L ALT 9 (7-52) U/L Alkaline Phosphatase 78 (34-104) U/L Total Creatine Kinase 69 (10-223) U/L CK-MB (CK-2) Pending Myoglobin Pending Troponin I 0.00 (<0.04) ng/mL Total Protein 6.9 (6.4-8.9) g/dL Albumin 4.0 (3.2-5.2) g/dL Globulin 2.9 (2-4) g/dL Albumin/Globulin Ratio 1.4 (1-3) Lipase Pending 02/27/18 Range/Units 07:41 WBC 5.9 (3.5-10.8) 10^3/ul RBC 4.24 (4.00-5.40) 10^6/ul Hgb 11.9 L (12.0-16.0) g/dl Hct 36 (35-47) % MCV 84 (80-97) fL MCH 28 (27-31) pg MCHC 34 (31-36) g/dl RDW 14 (10.5-15) % Plt Count 356 (150-450) 10^3/ul MPV 6.9 L (7.4-10.4) um3 Neut % (Auto) 56.5 (38-83) % Lymph % (Auto) 32.1 (25-47) % [place] % (Auto) 6.8 (0-7) % Eos % (Auto) 4.1 (0-6) % Baso % (Auto) 0.5 (0-2) % Absolute Neuts (auto) 3.4 (1.5-7.7) 10^3/ul Absolute Lymphs (auto) 1.9 (1.0-4.8) 10^3/ul Absolute Monos (auto) 0.4 (0-0.8) 10^3/ul Absolute Eos (auto) 0.2 (0-0.6) 10^3/ul Absolute Basos (auto) 0 (0-0.2) 10^3/ul Absolute Nucleated RBC 0 10^3/ul Nucleated RBC % 0.1 INR (Anticoag Therapy) (0.77-1.02) D-Dimer, Quantitative (Less Than 230) ng/mL Sodium (135-145) mmol/L Potassium (3.5-5.0) mmol/L Chloride (101-111) mmol/L Carbon Dioxide (22-32) mmol/L Anion Gap (2-11) mmol/L BUN (6-24) mg/dL Creatinine (0.51-0.95) mg/dL Est GFR ( Amer) (>60) Est GFR (Non-Af Amer) (>60) BUN/Creatinine Ratio (8-20) Glucose (70-100) mg/dL Lactic Acid (0.5-2.0) mmol/L Calcium (8.6-10.3) mg/dL Magnesium (1.9-2.7) mg/dL Total Bilirubin (0.2-1.0) mg/dL AST (13-39) U/L ALT (7-52) U/L Alkaline Phosphatase (34-104) U/L Total Creatine Kinase (10-223) U/L CK-MB (CK-2) Myoglobin Troponin I (<0.04) ng/mL Total Protein (6.4-8.9) g/dL Albumin (3.2-5.2) g/dL Globulin (2-4) g/dL Albumin/Globulin Ratio (1-3) Lipase Result Diagrams: 02/27/18 07:41 02/27/18 07:33 Lab Statement: Any lab studies that have been ordered have been reviewed, and results considered in the medical decision making process. - Radiology CXR Xray Interpretation: No Acute Changes Radiology Interpretation Completed By: Radiologist - No evidence for acute disease. Dr. Myers has reviewed this report. - CT brain CT Interpretation: No Acute Changes CT Interpretation Completed By: Radiologist - No evidence for acute intracranial abnormality. Dr. Myers has reviewed this report. - EKG 0724 Cardiac Rate: NL - 85 EKG Rhythm: Sinus Rhythm ST Segment: Non-Specific - depressed ST in lateral leads Ectopy: None EKG Interpretation: depressed ST in lateral leads 1033 Cardiac Rate: NL - 78 EKG Rhythm: Sinus Rhythm ST Segment: Non-Specific - depression V4-V6 Ectopy: None EKG Interpretation: depression V4-V6 Re-Evaluation - Re-Evaluation First Eval Re-Evaluation Time: 10:20 Change: Unchanged Comment: discussed plan for pt care, results. Second Eval Re-Evaluation Time: 11:30 Change: Unchanged Comment: Discussed elevated troponin level. Course/Dx - Course Course Of Treatment: DISCUSSED RESULTS WITH THE PATIENT. ADMIT HOSPITALIST. - Diagnoses Provider Diagnoses: Palpitations, Chest pain, Elevated troponin - Physician Notifications Discussed Care Of Patient With: Heide Faith Time Discussed With Above Provider: 10:50 Instructed by Provider To: Other - Recommends rechecking trop to determine dispo. If D/C, she recommends a stress-test. Discharge - Sign-Out/Discharge Documenting (check all that apply): Discharge/Admit/Transfer - Discharge Plan Condition: Stable Disposition: ADMITTED TO [facility] - Billing Disposition and Condition Condition: STABLE Disposition: Admitted to [facility] The documentation as recorded by the Livier mcdowell Simon accurately reflects the service I personally performed and the decisions made by me, Eran Myers MD.
[2018-02-27] MEDS: Metoprolol Tartrate TAB* 25 MG PO SCH (20:30)
[2018-02-27] MEDS ORDERED: Zolpidem TAB* 10 MG PO PRN (21:00)
[2018-02-28 06:28] LABS: ABS Basophils 0 10^3/ul (0-0.2); ABS Eosinophils 0.3 10^3/ul (0-0.6); ABS Lymphocytes 1.7 10^3/ul (1.0-4.8); ABS Monocytes 0.5 10^3/ul (0-0.8); ABS Neutrophils 5.9 10^3/ul (1.5-7.7); ABS Nucleated RBC 0 10^3/ul; Eosinophil % 3.2 % (0-6); Hematocrit 37 % (35-47); Hemoglobin 12.4 g/dl (12.0-16.0); Lymphocyte % 20.2 % (25-47); Mean Corpuscular HGB Conc 34 g/dl (31-36); Mean Corpuscular Hemoglobin 28 pg (27-31); Mean Corpuscular Volume 84 fL (80-97); Mean Platelet Volume 7.3 um3 (7.4-10.4); Nucleated Red Blood Cells % 0; Platelet Count 408 10^3/ul (150-450); Red Blood Count 4.36 10^6/ul (4.00-5.40); Red Cell Distribution Width 15 % (10.5-15); White Blood Count 8.3 10^3/ul (3.5-10.8)
[2018-02-28 06:46] LABS: EGFR Non-African American 101.5 (>60)
[2018-02-28] MEDS: Metoprolol Tartrate TAB* 25 MG PO SCH (08:09)
[2018-02-28] MEDS ORDERED: Regadenoson* 0.4 MG/5 ML SYRINGE ONE (08:57)
[2018-02-28] MEDS ORDERED: Aspirin EC TAB* 81 MG TAB.EC PO SCH (09:00)
[2018-02-28] MEDS ORDERED: Pantoprazole TAB (NF) 20 MG TAB PO SCH (09:00)
[2018-02-28] MEDS ORDERED: Aminophylline IV* 25 MG/ML 10 ML VIAL ONE (10:00)
--- NOTE | 2018-02-28 11:37 | RAD ---
Edited for charges. Indication: Chest pain. Myocardial perfusion scan was performed utilizing 1 day protocol. Rest myocardial perfusion was performed after intravenous injection of 10.9 mCi of technetium 99m tetrofosmin. Pharmacological stress was applied and 25.2 mCi of technetium 99m tetrofosmin was injected. There is homogeneous distribution of the radiotracer throughout the left ventricle. There is a small perfusion defect in the septum at the base of the heart which may be artifactual in nature. The ejection fraction at stress is 59%. No focal wall motion abnormality is identified. IMPRESSION: No evidence of fixed or reversible perfusion defect is identified. Likely artifact is noted in the septum near the base of the heart. Normal ejection fraction. ASSESSMENT: Low risk Based on imaging criteria from ACC/AHA 2002 Guideline Update for the Management of Patients With Chronic Stable Angina Table 23. Noninvasive Risk Stratification. MTDD
[2018-02-28 12:33] VITALS: BP 154/84
--- NOTE | 2018-03-01 09:46 | DS ---
AMENDED REPORT NOW INCLUDES COSIGNER DESIGNATION - ESIGNED BEFORE ADJUSTMENTS CC: Dr. Salmeron; Dr. Taqueria Harrison * DISCHARGE SUMMARY: DATE OF ADMISSION: 02/27/18 DATE OF DISCHARGE: 02/28/18 PRIMARY CARE PROVIDER: Dr. Lia Salmeron. MY ATTENDING FOR TODAY: Dr. Zach Mcallister.* (DICTATED BY LIONEL TRENT, TYRONE) MARINE FIRE FIGHTER: Dr. Taqueria Harrison, tile sprayer who preformed patient's stress test while admitted. HOSPITAL COURSE: This is a very pleasant 52-year-old female patient who was in her normal state of health while at home and began having some palpitations. She states that she has had palpitations in the past and also had an episode of tachycardia 27 years ago when she was with her daughter; however, even though she has had intermittent palpitations overtime, it has never persisted for more than fleeting moment or two. The patient states; however, for the 10 minutes straight she had persistent tachycardia with palpitations. She felt the sensation very deeply in her chest and then also had some left-sided associated chest pain. The patient's took her blood pressure at that time which was moderately elevated but also noted on her blood pressure cuff that her heart rate was 181. Her brought her to the emergency department for prompt evaluation. Her heart rate was regular, sinus rhythm on EKG and did not show any acute ST segment changes, no ectopy and no further tachycardia. However, her initial troponin was modestly bumped at 0.09. The patient stayed for second troponin which was also 0.09. She was subsequently admitted for chest pain rule out. Her third troponin; however, did decrease to 0.06 and the patient had a nuclear stress test today 02/28/18. Of significant note, the patient reported that her chest pain is completely resolved after her palpitations had stopped. She had no further instances of palpitations or tachycardia and no cardiac arrhythmias while on telemetry during the duration of her stay. The patient underwent nuclear stress test with Dr. Harrison this morning. The stress test revealed a low risk exam. The report from her scan reads no evidence of fixed or reversible perfusion defect identified, noted also a possible small perfusion defect in the septum at the base of the heart, which may represent artifact in nature. The ejection fraction was 59%, again with no focal wall motion abnormality noted. As such, the assessment of the stress test was low risk. The patient was readied for discharge based on her low risk assessment. We did discuss at length the patient's possibility of having had an SVT while she was at home; however, we did not record any event while she was here. Given that her stress test is low risk and essentially negative, we feel comfortable discharging her to home with followup and adjustment to her metoprolol dose. I do feel given that she recorded some tachycardia at home, we can modestly increase her metoprolol in the meantime and then have her followup. Followups should be with Dr. Lia Salmeron in the next week. I recommended that she see Cardiology. She expressed that Dr. Harrison who read her stress today, she would be interested in seeing as an outpatient. We recommend that she follow up with him within the next month to further assess the possibility for SVT or some other tachyarrhythmia that was not elucidated during this visit, an event monitor as an outpatient would be appropriate. Please also note that we discussed her elevated cholesterol and that she should have a discussion with Dr. Salmeron and/or Dr. Harrison regarding her elevated LDL and if she warrants statin therapy initiation as an outpatient, versus lifestyle modifications, etc. DISCHARGE DIAGNOSES: 1. Chest pain. 2. Elevated troponin. 3. History of posttraumatic stress disorder. 4. Subjective tachycardia. 5. Palpitations. DISCHARGE MEDICATIONS: Include: 1. 81 mg of aspirin daily. This is new. 2. Metoprolol tartrate 75 mg daily, that would be 50 mg in the morning, 25 mg in the evening, scheduled 12 hours apart. Her regularly scheduled medications: 1. Cyclobenzaprine 10 mg daily. 2. Lorazepam 1 mg daily. 3. Pantoprazole 20 mg daily. 4. Zolpidem 10 mg at bedtime as needed for sleep. FOLLOWUP: She can follow up with Dr. Salmeron within a week, Dr. Harrison as needed. REVIEW OF SYSTEMS: On day of discharge, review of systems negative except as noted above. PHYSICAL EXAM: The patient is alert, in no acute distress. Vital Signs: Currently, blood pressure 154/84, heart rate 71, respiratory rate 16, O2 saturation 100% on room air and temperature of 97.7. HEENT: The patient is atraumatic, normocephalic. PERRLA with anicteric sclera. Neck is supple, nontender. No JVD noted. No thyromegaly appreciated. No carotid bruit auscultated. Cardiovascular: S1, S2 present. No murmurs, gallops, or rubs noted. Rate and rhythm are regular. No ectopy on telemetry. Lungs are clear bilaterally to auscultation with no wheezing, rhonchi or rales. Abdomen: Soft , nontender, nondistended. Positive bowel sounds in all 4 quadrants. : Deferred. Musculoskeletal: There is no clubbing. No cyanosis, no edema. She has +2 distal pulses palpable, steady gait and full range of motion. Neurologic : She is grossly intact with no focal deficit. Psychiatric: Cooperative and appropriate. LABORATORY DATA: WBC is 8.3, RBC is 4.36, hemoglobin 12.4, hematocrit 37, platelets 408. Sodium 144, potassium 3.7, chloride 109, CO2 of 28, BUN 9, creatinine 0.62. GFR is 101.5, magnesium 2.0, calcium 9.2. Troponins were 0.09 , 0.09 and 0.06. Triglycerides 218, cholesterol 277, LDL 191, HDL 42.6, lipase 39, TSH 2.06. DISPOSITION: The patient was discharged in stable condition to home in the care of her . All questions were answered. The patient stated understanding of her followups and new medication changes at discharge. LIONEL TRENT NP [id number]/[facility] #: [id number] [facility]
== END 2018-02-28 15:23 | disposition home or self-care (01) ==
LOC: ED 07:19 → MEDTELE 12:17
PROVIDERS: ADMIT Pediatrics; ATTEND Internal Medicine
DX: R07.9 Chest pain, unspecified (principal); R00.2 Palpitations; R74.8 Abnormal levels of other serum enzymes; R06.02 Shortness of breath; R00.0 Tachycardia, unspecified; F43.10 Post-traumatic stress disorder, unspecified; I10 Essential (primary) hypertension; D64.9 Anemia, unspecified; K21.9 Gastro-esophageal reflux disease without esophagitis; R94.31 Abnormal electrocardiogram [ECG] [EKG]; Z79.899 Other long term (current) drug therapy; Z88.8 Allergy status to other drugs, medicaments and biological substances
CPT/HCPCS: 36415; 70450; 71045; 78452; 80048; 80053; 80061; 82550; 82553; 83605; 83690; 83735; 83874; 84443; 84484; 85025; 85379; 85610; 93005; 93017; 96361; 96374; 99283; A9270-GY; A9502; G0378; J0280; J2405; J2785